=== PATIENT | male | born 1975 | race Caucasian/White ===

== ENCOUNTER 2025-07-18 15:53 | Observation (INO) | payer OTHER, SELFPAY ==
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
[2025-07-18 15:58] VITALS: BP 157/103; PULSE 69; TEMP 36.8; O2SAT 98; BMI 39.0
--- NOTE | 2025-07-18 16:13 | US_ITS ---
The [address] [address] Patient Name: HAZEL PAPPAS MRN: [id number] date: 1975 Sex: M Assigned Patient Location: ED.MAIN Current Patient Location: ED.MAIN Accession/Order Number: [id number] Exam Date: 07/18/2025 17:05 Report Date: 07/18/2025 18:17 At the request of: DENIZ SELF MD Procedure: US scrotum doppler Scrotal ultrasound HISTORY: Bilateral testicular pain for 2 months COMPARISON: None RIGHT testicle measures 5.0 x 1.9 x 3.6 cm. LEFT testicle measures 4.4 x 2.2 x 3.3 cm. No testicular mass or microcalcifications identified. Normal color flow of both testicles identified. RIGHT epididymal head measures 1.0 cm. LEFT epididymal head measures 0.9 cm. Prominent left varicocele.. No hydroceles identified. No scrotal wall abnormality identified. US/US scrotum doppler IMPRESSION: Left varicocele. Unremarkable testicles and epididymides. Impression dictated by: Rashawn Acosta M.D. 07/18/2025 6:17 PM Dictation Location: [place] [address] Electronically authenticated by: [id number] Y Date: 07/18/2025 18:17
[2025-07-18 16:22] LABS: Glucose Urine UA NEGATIVE (NEGATIVE)
[2025-07-18 16:31] LABS: Cast Seen? NONE SEEN #/LPF (NONE SEEN); Crystals Seen? None Seen #/HPF (None Seen); Urine Culture Indicated NO
[2025-07-18] MEDS: KETOROLAC TROMETHAMINE 60 MG/2 ML VIAL IM (16:41)
--- OUTSIDE RECORDS SUMMARY | 2025-07-18 16:42 | XMS_ITS | Clinical Summary ---
Author Organization [facility] Address [address] [place] [address] Care Team Providers Care Business Information Manager Name Role Phone Unavailable Primary Care Provider Unavailabl e Allergies No known active allergies Medications MedicationSigDispense QuantityRefillsLast FilledStart DateEnd DateStatus Losartan 50 MG tablet Take 1 tablet by mouth daily. 30 tablet 4Active Additional Information Patient not taking.Reported on 07/16/2025 Sulfamethoxazole-trimethoprim 800-160 MG per tablet Indications:Urinary tract infection without hematuria, site unspecifiedTake 1 tablet by mouth 2 times daily for 7 days. 14 tablet 515Active Active Problems No known active problems Encounters DateTypeDepartmentCare QdsuVfiehjyxbas66/05/2025Results Follow-Up [facility] [place] [address] [facility] [address] [place] [address] Tamara Metz, HYPERION ANALYST-FORMS ANALYST CHLAMYDIA & GONORRHEA AMPLIFIED PROBE, TRICHOMONAS BY PCR, URINE CULTURE 07/16/2025 3:00 PM ESTOffice Visit [facility] [place] [address] [facility] [address] [place] [address] Starr Rahman, HYPERION ANALYST-FORMS ANALYST Dysuria (Primary Dx); Unprotected sex; Urinary tract infection without hematuria, site unspecifiedfrom Last 3 Months Family History RelationNameStatusCommentsFatherAliveMotherDeceased Social History Tobacco UseTypesPacks/DayYears UsedDateSmoking Tobacco: NeverPassive [...] EDTGender IdentityNot on fileSexual OrientationNot on file Last Filed Vital Signs Vital SignReadingTime TakenCommentsBlood Ztlimjrk420/8407/16/2025 3:18 PM EST Apnoo411907/16/2025 3:18 PM FFXJwigefzltwf45.9 ??C (98.5 ??F)07/16/2025 3:18 PM ESTRespiratory Yqvc678609/15/2024 3:18 PM ESTOxygen Cumdmeynrc03%07/16/2025 3:18 PM ESTInhaled Oxygen Concentration--Vwgmbb466.5 kg (272 lb 3.2 oz)07/16/2025 3:18 PM TYJObgnwe550.8 cm (5' 10 )07/16/2025 3:18 PM ESTBody Mass Index39.06 07/16/2025 3:18 PM EST Plan of Treatment Health MaintenanceDue DateLast DoneCommentsHEPATITIS C VIRUS PYCKZRECM1977 RMMCXNX08 1975HIV SCREENING QPYCWUJNCO75/21/1992HEP B VACCINE (1 of 3 - 19+ 3-dose series)1996TDAP (ADULT)1996LIPID EFXBEHDJC32/21/2017 COLORECTAL CANCER SCREENING GPSPOTYFLM04/21/2022COVID-19 VACCINE (2024- season)2025INFLUENZA VACCINE (#1)2025PNEUMOCOCCAL VACCINE SERIESAged OutNo longer eligible based on patient's age to complete this topic Procedures Procedure NamePriorityDate/TimeAssociated DiagnosisCommentsHC SO TRICHOMONAS VAGINALIS AMPLIF - HZmyugyx64/04/2025 6:02 PM EST Dysuria Unprotected sex CHLAMYDIA & GONORRHEA AMPLIFIED HCMNDVyriawr60/04/2025 6:02 PM EST Dysuria Unprotected sex URINE MNMIDXIGyssnlx13/04/2025 6:02 PM EST Dysuria POCT URINE DIPSTICK GGOUVLPVZIlxyqpg76/04/2025 4:22 PM EST Dysuria from Last 3 Months Results * CHLAMYDIA & GONORRHEA AMPLIFIED PROBE (07/16/2025 6:02 PM EST)ComponentValue Ref RangeTest MethodAnalysis TimePerformed AtPathologist SignatureChlamydia trachomatis Amplified ProbeNot DetectedNot Nljrtpeu74/04/2025 9:06 PM [facility] LABORATORYComment:Chlamydia trachomatis DNA not detected by real-time PCR.Neisseria gonorrhea Amplified ProbeNot DetectedNot Izwdegfb49/04/2025 9:06 PM [facility]ATORYComment: Neisseria gonorrhoeae DNA not detected by real-time PCR.Specimen (Source) Anatomical Location / LateralityCollection Method / VolumeCollection Time Received TimeUrineURINE SPECIMEN / Rawusxr2307/16/2025 6:02 PM EST07/16/2025 7:24 PM EST Narrative Authorizing ProviderResult TypeResult StatusJessjuana Rahman HYPERION ANALYST-CNPMICROBIOLOGY - GENERAL ORDERABLESFinal ResultPerforming OrganizationAddressCity/State/[facility] CodePhone Number [facility] [address] [place] [phone] * TRICHOMONAS BY PCR (07/16/2025 6:02 PM EST)ComponentValueRef RangeTest Method Analysis TimePerformed AtPathologist SignatureTrichomonas vaginalis by PCRNot DetectedNot Muaiakrn98/04/2025 8:42 PM [facility] LABORATORYSpecimen (Source)Anatomical Location / LateralityCollection Method / VolumeCollection TimeReceived AlenLredx89/04/2025 6:02 PM EST07/16/2025 7:25 PM EST Narrative Authorizing ProviderResult TypeResult StatusJessjuana Rahman HYPERION ANALYST-CNPBODY FLUIDS & STOOLS ORDERABLESFinal ResultPerforming OrganizationAddressCity/State/ZIP Code Phone Number [facility] [address] [place] [phone] * URINE CULTURE (07/16/2025 6:02 PM EST)ComponentValueRef RangeTest Method Analysis TimePerformed AtPathologist SignatureCultureNo significant growth. Routine cultures are evaluated for significant uro-pathogens >=10,000 CFU/mL 07/17/2025 3:29 PM [facility] LABORATORYSpecimen (Source)Anatomical Location / LateralityCollection Method / VolumeCollection TimeReceived TimeUrineURINE SPECIMEN OBTAINED BY CLEAN CATCH PROCEDURE / Sdpwbrk4307/16/2025 6:02 PM EST07/16/2025 7:25 PM EST Narrative Authorizing ProviderResult TypeResult StatusStarr Rahman HYPERION ANALYST-CNPMICROBIOLOGY - GENERAL ORDERABLESFinal ResultPerforming OrganizationAddressCity/State/ZIP CodePhone Number [facility] [address] [place], [place] [phone] * POCT URINE DIPSTICK AUTOMATED (07/16/2025 4:22 [...] 4:22 PM EST Narrative Authorizing ProviderResult TypeResult StatusStarr Rhaman HYPERION ANALYST-CNPPOINT OF CARE TESTINGFinal Result from Last 3 Months Insurance
--- OUTSIDE RECORDS SUMMARY | 2025-07-18 16:42 | XMS_ITS | Encounter Summary ---
Author Organization [facility] Address [address] [place] [address] [place] [address] Care Team Providers Care Playback Operator Name Role Phone Unavailable Primary Care Provider Unavailabl e Encounter Details DateTypeDepartmentCare Team (Latest Contact Info)Iiudtkhvbba03/05/2025Results Follow-Up [facility] [address] [place] [address] Tamara Metz, TEXTILE COLORIST FORMULATOR-GERMINATION TESTING MANAGER [address] [facility] [address] [place] [address] CHLAMYDIA & GONORRHEA AMPLIFIED PROBE, TRICHOMONAS BY PCR, URINE CULTURE Social History Tobacco UseTypesPacks/DayYears UsedDateSmoking Tobacco: NeverPassive Smoke Exposure: NeverSmokeless Tobacco: NeverAlcohol UseStandard Drinks/WeekComments Yes0 (1 standard drink = 0.6 oz pure alcohol)rarelyDepressionAnswerDate Recorded PHQ-9 Total Score (Interpretation of Total Score 1-4 = Minimal depression; 5-9 = Mild depression; 10-14 = Moderate depression; 15-19 = Moderately severe depression)Sex and Gender InformationValueDate RecordedSex Assigned at BirthNot on fileLegal FhoRmad8605/21/2024 2:55 PM EDTGender IdentityNot on file Sexual OrientationNot on filedocumented as of this encounter Plan of Treatment Not on file documented as of this encounter Visit Diagnoses Not on filedocumented in this encounter Additional Health Concerns AssessmentNoted TimePHQ-9 Depression Total Score: 3:18 PM EST documented as of this encounter
[2025-07-18 17:43] LABS: Hematocrit 38.7 % (42.0-54.0); Hemoglobin 13.0 g/dL (14.0-18.0); Immature Granulocytes Abs Auto 0.02 10^3/uL (0.00-0.03); Immature Granulocytes Pct Auto 0.2 % (0.0-0.5); Lymphocytes Absolute Auto 2.8 10^3/uL (1.2-3.8); Mean Corpuscular HGB Conc 33.6 g/dL (29.9-35.2); Mean Corpuscular Hemoglobin 26.5 pg (25.9-34.0); Mean Corpuscular Volume 78.8 fL (80.0-94.0); Platelet Count 262 10^3/uL (150-450); Red Blood Count 4.91 10^6/uL (4.70-6.10); White Blood Count 9.4 10^3/uL (4.0-11.0)
[2025-07-18 18:01] LABS: Alanine Aminotransferase 30 U/L (16-63); Albumin Globulin Ratio 1.0; Albumin Level 3.4 g/dL (3.4-5.0); Alkaline Phosphatase 59 U/L (46-116); Anion Gap 10.6; Aspartate Amino Transferase 18 U/L (15-37); Blood Urea Nitrogen 10.0 mg/dL (7.0-18.0); Calcium 8.8 mg/dL (8.5-10.1); Carbon Dioxide 29.0 mmol/L (21.0-32.0); Chloride 107 mmol/L (98-107); Estimated GFR (African America >60 (>=60 mL/min/1.73m^2); Estimated GFR (Non-African Ame >60 (>=60 mL/min/1.73m^2); Globulin 3.5 g/dL; Glucose 76 mg/dL (74-106); Potassium 3.6 mmol/L (3.5-5.1); Sodium 143 mmol/L (136-145); Total Protein 6.9 g/dL (6.4-8.2)
--- NOTE | 2025-07-18 18:28 | CT_ITS ---
[address] [address] Patient Name: HAZEL PAPPAS MRN: [id number] date: 1975 Sex: M Assigned Patient Location: ER Current Patient Location: ED.MAIN Accession/Order Number: [id number] Exam Date: 07/18/2025 18:40 Report Date: 07/18/2025 19:59 At the request of: DENIZ SELF MD Procedure: CT abdomen pelvis wo con CT Abdomen and Pelvis withoutcontrast TECHNIQUE: Axial imaging with 2-D reconstruction. The CT exam was performed using one or more the following dose reduction techniques: Automated exposure control, adjustment of the MA and/or Kv according to patient size, or use of the iterative reconstruction technique. COMPARISON: None History: Left flank pain. Difficulty with urination LIMITATIONS: None LOWER THORAX Unremarkable LIVER: Hepatic steatosis GALLBLADDER: No gallbladder abnormality identified. BILE DUCTS: No dilatation SPLEEN: Unremarkable PANCREAS: Unremarkable ADRENAL GLANDS: Unremarkable KIDNEYS:Bilateral nephrolithiasis measuring up to 3 mm. 1 cm left UPJ stone with moderate hydronephrosis. Obstructing distal right ureteral stone measuring up to 11 mm. Moderate right hydronephrosis and hydroureter. 4 mm left UVJ calculus. AORTA: No abdominal aortic aneurysm identified. RETROPERITONEUM: No significant retroperitoneal abnormalities identified. MESENTERY:Unremarkable STOMACH:Unremarkable SMALL BOWEL: The small bowel loops are nondistended. APPENDIX: The appendix is normal. COLON: Scattered diverticulosis URINARY BLADDER: Urinary bladder is unremarkable. REPRODUCTIVE SYSTEM: Reproductive structures are unremarkable. PNEUMOPERITONEUM: None PERITONEAL FLUID:None BONY STRUCTURES: Unremarkable ABDOMINAL WALL: Fat-containing umbilical hernia. CT/CT abdomen pelvis wo con IMPRESSION: 1 cm left UPJ stone with moderate hydronephrosis. 11 mm distal right ureteral obstructing stone with moderate hydronephrosis and hydroureter. 4 mm left UVJ calculus. Impression dictated by: Rashawn Acosta M.D. 07/18/2025 7:59 PM Dictation Location[facility] Electronically authenticated by: [id number] Y Date: 07/18/2025 19:59
[2025-07-18 18:35] VITALS: BP 137/83; PULSE 60; O2SAT 100
--- NOTE | 2025-07-18 18:54 | ED.ABDPAIN1 ---
HPI - Abdominal Pain General Chief Complaint: Abdominal Pain Stated Complaint: PAIN ON THE LEFT SIDE/ PRESSURE TO PEE BUT CAN'T P Time Seen by Provider: 07/18/25 16:12 Source: patient Mode of arrival: walk-in History of Present Illness HPI narrative: 49-year-old male presented to the ER with a chronic pain that been going on for the last 2 months although over the last few days he has been having this new pain in his left flank pain Generally he said that the pain mostly in his scrotum but he does not have it all the time and it comes and goes The pain right now is in his left flank going to the front associated with no nausea no vomiting but he said that the pain sometimes is severe Related Data Home Medications ?Medication ?Instructions ?Recorded ?Confirmed No Known Home Medications 07/18/25 07/18/25 Allergies Allergy/AdvReac Type Severity Reaction Status Date / Time No Known Drug Allergies Allergy Verified 07/18/25 16:02 Review of Systems ROS Status of ROS 10 or more systems reviewed and unremarkable except as noted in history and below PFSH PFSH Social History Little interest or pleasure in doing things: not at all Feeling down, depressed, or hopeless: not at all Exam Narrative Exam Narrative: Nurses notes and vital signs reviewed and patient is not hypoxic. General: Well-appearing and in no apparent distress. Skin: Warm, dry, no pallor noted. No rash. Head: Normocephalic, atraumatic. Neck: Supple, non-tender. Eye: Pupils are equal, round and EOMI. No scleral icterus. Ears, Nose, Mouth, and Throat: TM are clear, no nasal mucosal hypertrophy. Oral mucosa is moist, no posterior oropharynx erythema, uvula is mid-line Cardiovascular: Regular Rate and Rhythm without murmur, gallop or rub. Respiratory: No accessory muscle use or respiratory distress. Lungs are clear to auscultation, no wheezing, rales or rhonchi Chest Wall: no tenderness Back: No midline thoracic or lumbar vertebral tenderness. Left CVA tenderness Musculoskeletal: normal ROM, no calf or popliteal tenderness, no lower extremity edema/swelling GI: Abdomen is soft, non-distended. Normal bowel sounds. No masses appreciated. No tenderness to palpation. No rebound, guarding, or rigidity noted. Scrotal exam was done with the caring nurse at the bedside showed no acute pathology the patient have normal testicles bilaterally but he is complaining of tenderness. Neurological: A&O x4. No cranial nerve dysfunction observed. No truncal ataxia. Moves all extremities. Sensation intact. Psychiatric: Cooperative and interactive. Normal mood and affect. Constitutional Vital Signs, click to edit/add: Last Vital Signs Temp 98.3 F 07/18/25 15:58 Pulse 60 07/18/25 18:35 Resp 16 07/18/25 18:35 BP 137/83 07/18/25 18:35 Pulse Ox 100 07/18/25 18:35 O2 Del Method Room Air 07/18/25 18:35 Course Vital Signs Vital signs: Vital Signs Temperature 98.3 F 07/18/25 15:58 Pulse Rate 69 07/18/25 15:58 Respiratory Rate 16 07/18/25 15:58 Blood Pressure 157/103 H 07/18/25 15:58 Pulse Oximetry 98 07/18/25 15:58 Oxygen Delivery Method Room Air 07/18/25 15:58 Temperature 98.3 F 07/18/25 15:58 Pulse Rate 60 07/18/25 18:35 Respiratory Rate 16 07/18/25 18:35 Blood Pressure 137/83 07/18/25 18:35 Pulse Oximetry 100 07/18/25 18:35 Oxygen Delivery Method Room Air 07/18/25 18:35 MDM - Abdominal Pain MDM Narrative Medical decision making narrative: Ultrasound of the scrotum showed no acute pathology in the urine as well as CBC and chemistry CT abdomen pelvis pending to rule out any kidney stone Lab Data Labs: Lab Results 07/18/25 07/18/25 Range/Units 16:00 17:32 WBC 9.4 (4.0-11.0) 10^3/uL RBC 4.91 (4.70-6.10) 10^6/uL Hgb 13.0 L (14.0-18.0) g/dL Hct 38.7 L (42.0-54.0) % MCV 78.8 L (80.0-94.0) fL MCH 26.5 (25.9-34.0) pg MCHC 33.6 (29.9-35.2) g/dL RDW 14.2 (11.0-15.0) % Plt Count 262 (150-450) 10^3/uL MPV 9.2 L (9.5-13.5) fL Neut % (Auto) 54.7 (43.0-75.0) % Lymph % (Auto) 29.3 (20.5-60.0) % [place] % (Auto) 10.7 (1.7-12.0) % Eos % (Auto) 4.4 (0.9-7.0) % Baso % (Auto) 0.7 (0.2-2.0) % Neut # (Auto) 5.1 (1.4-6.5) 10^3/uL Lymph # (Auto) 2.8 (1.2-3.8) 10^3/uL [place] # (Auto) 1.0 H (0.3-0.8) 10^3/uL Eos # (Auto) 0.4 (0.0-0.7) 10^3/uL Baso # (Auto) 0.1 (0.0-0.1) 10^3/uL Abs Immat Gran (auto) 0.02 (0.00-0.03) 10^3/uL Imm/Tot Granulo (auto) 0.2 (0.0-0.5) % Sodium 143 (136-145) mmol/L Potassium 3.6 (3.5-5.1) mmol/L Chloride 107 (98-107) mmol/L Carbon Dioxide 29.0 (21.0-32.0) mmol/L Anion Gap 10.6 BUN 10.0 (7.0-18.0) mg/dL Creatinine 0.99 (0.70-1.30) mg/dL Est GFR ( Amer) >60 (>=60 mL/min/1.73m^2) Est GFR (Non-Af Amer) >60 (>=60 mL/min/1.73m^2) BUN/Creatinine Ratio 10.1 Glucose 76 (74-106) mg/dL Calcium 8.8 (8.5-10.1) mg/dL Total Bilirubin 0.5 (0.2-1.0) mg/dL AST 18 (15-37) U/L ALT 30 (16-63) U/L Alkaline Phosphatase 59 (46-116) U/L Total Protein 6.9 (6.4-8.2) g/dL Albumin 3.4 (3.4-5.0) g/dL Globulin 3.5 g/dL Albumin/Globulin Ratio 1.0 Urine Color Lt. yellow (YELLOW) Urine Clarity Clear (CLEAR) Urine pH 6.0 (5.0-9.0) Ur Specific [place] <=1.005 A (1.005-1.025) Urine Protein Negative (NEG/TRACE) mg/dL Urine Glucose (UA) Negative (NEGATIVE) mg/dL Urine Ketones Negative (NEGATIVE) mg/dL Urine Occult Blood Negative (NEGATIVE) Urine Nitrite Negative (NEGATIVE) Urine Bilirubin Negative (NEGATIVE) Urine Urobilinogen 0.2 (0.2-1.0) EU/dL Ur Leukocyte Esterase Trace A (NEGATIVE) Urine RBC None seen (0-2) #/HPF Urine WBC 2-5 A (NONE SEEN) #/HPF Ur Squamous Epith Cells Rare (NONE/RARE) #/LPF Urine Crystals None seen (None Seen) #/HPF Urine Bacteria Trace A (NONE SEEN) #/HPF Urine Casts None seen (NONE SEEN) #/LPF Urine Mucus None seen (NONE SEEN) Ur Culture Indicated? No Discharge Plan Discharge Patient Disposition: Still a Patient
[2025-07-18 20:26] VITALS: BP 142/88; PULSE 62; TEMP 36.6; O2SAT 99
--- NOTE | 2025-07-18 20:33 | ED.GENADUL1 ---
HPI HPI - General Adult General Chief complaint: Abdominal Pain Stated complaint: PAIN ON THE LEFT SIDE/ PRESSURE TO PEE BUT CAN'T P Time Seen by Provider: 07/18/25 16:12 Source: patient Mode of arrival: walk-in History of Present Illness HPI narrative: This 49-year-old male was signed out to me at shift change. He presents for evaluation of lower abdominal pain radiating into his testicles. He states earlier today the pain became so severe that his eyes were watering. He does not have a history of kidney stones. He is not diabetic. He has not had a fever. I reviewed his labs. He has a normal white count and stable hemoglobin. Electrolytes are normal with a stable BUN and creatinine. Urine shows 2-5 white blood cells but is otherwise clear. Ultrasound of the testicles was negative and CT scan of the abdomen pelvis shows a 1 cm left UPJ stone with moderate hydronephrosis and an 11 mm distal right ureteral stone with moderate hydronephrosis and hydroureter as well as a 4 mm left UVJ calculus. The results of these findings were discussed with Dr. Brand from urology. He requested the patient be admitted to the hospitalist service be kept n.p.o. after midnight with IV fluids and pain medications and he will be seen and evaluated by urology tomorrow. This was discussed with the patient who is in agreement with this plan. His pain is under control at this time. He is not having any nausea or vomiting. His abdomen is soft and nontender. Related Data Home Medications ?Medication ?Instructions ?Recorded ?Confirmed No Known Home Medications 07/18/25 07/18/25 Allergies Allergy/AdvReac Type Severity Reaction Status Date / Time No Known Drug Allergies Allergy Verified 07/18/25 16:02 Opioid HPI Opioid Management Most Recent Opioid Data: Last Pain Scale 3 Today, 20:26 Last ED Pain Assessment Today, 20:26 Last MAR Pain Assessment Today, 16:41 PFSH PFSH Social History Little interest or pleasure in doing things: not at all Feeling down, depressed, or hopeless: not at all Exam Constitutional Vital Signs, click to edit/add: Last Vital Signs Temp 97.9 F 07/18/25 20:26 Pulse 62 07/18/25 20:26 Resp 16 07/18/25 18:35 BP 142/88 H 07/18/25 20:26 Pulse Ox 99 07/18/25 20:26 O2 Del Method Room Air 07/18/25 20:26 Course Vital Signs Vital signs: Vital Signs Temperature 98.3 F 07/18/25 15:58 Pulse Rate 69 07/18/25 15:58 Respiratory Rate 16 07/18/25 15:58 Blood Pressure 157/103 H 07/18/25 15:58 Pulse Oximetry 98 07/18/25 15:58 Oxygen Delivery Method Room Air 07/18/25 15:58 Temperature 97.9 F 07/18/25 20:26 Pulse Rate 62 07/18/25 20:26 Respiratory Rate 16 07/18/25 18:35 Blood Pressure 142/88 H 07/18/25 20:26 Pulse Oximetry 99 07/18/25 20:26 Oxygen Delivery Method Room Air 07/18/25 20:26 Medical Decision Making Lab Data Labs: Lab Results 07/18/25 07/18/25 Range/Units 16:00 17:32 WBC 9.4 (4.0-11.0) 10^3/uL RBC 4.91 (4.70-6.10) 10^6/uL Hgb 13.0 L (14.0-18.0) g/dL Hct 38.7 L (42.0-54.0) % MCV 78.8 L (80.0-94.0) fL MCH 26.5 (25.9-34.0) pg MCHC 33.6 (29.9-35.2) g/dL RDW 14.2 (11.0-15.0) % Plt Count 262 (150-450) 10^3/uL MPV 9.2 L (9.5-13.5) fL Neut % (Auto) 54.7 (43.0-75.0) % Lymph % (Auto) 29.3 (20.5-60.0) % [place] % (Auto) 10.7 (1.7-12.0) % Eos % (Auto) 4.4 (0.9-7.0) % Baso % (Auto) 0.7 (0.2-2.0) % Neut # (Auto) 5.1 (1.4-6.5) 10^3/uL Lymph # (Auto) 2.8 (1.2-3.8) 10^3/uL [place] # (Auto) 1.0 H (0.3-0.8) 10^3/uL Eos # (Auto) 0.4 (0.0-0.7) 10^3/uL Baso # (Auto) 0.1 (0.0-0.1) 10^3/uL Abs Immat Gran (auto) 0.02 (0.00-0.03) 10^3/uL Imm/Tot Granulo (auto) 0.2 (0.0-0.5) % Sodium 143 (136-145) mmol/L Potassium 3.6 (3.5-5.1) mmol/L Chloride 107 (98-107) mmol/L Carbon Dioxide 29.0 (21.0-32.0) mmol/L Anion Gap 10.6 BUN 10.0 (7.0-18.0) mg/dL Creatinine 0.99 (0.70-1.30) mg/dL Est GFR ( Amer) >60 (>=60 mL/min/1.73m^2) Est GFR (Non-Af Amer) >60 (>=60 mL/min/1.73m^2) BUN/Creatinine Ratio 10.1 Glucose 76 (74-106) mg/dL Calcium 8.8 (8.5-10.1) mg/dL Total Bilirubin 0.5 (0.2-1.0) mg/dL AST 18 (15-37) U/L ALT 30 (16-63) U/L Alkaline Phosphatase 59 (46-116) U/L Total Protein 6.9 (6.4-8.2) g/dL Albumin 3.4 (3.4-5.0) g/dL Globulin 3.5 g/dL Albumin/Globulin Ratio 1.0 Urine Color Lt. yellow (YELLOW) Urine Clarity Clear (CLEAR) Urine pH 6.0 (5.0-9.0) Ur Specific [place] <=1.005 A (1.005-1.025) Urine Protein Negative (NEG/TRACE) mg/dL Urine Glucose (UA) Negative (NEGATIVE) mg/dL Urine Ketones Negative (NEGATIVE) mg/dL Urine Occult Blood Negative (NEGATIVE) Urine Nitrite Negative (NEGATIVE) Urine Bilirubin Negative (NEGATIVE) Urine Urobilinogen 0.2 (0.2-1.0) EU/dL Ur Leukocyte Esterase Trace A (NEGATIVE) Urine RBC None seen (0-2) #/HPF Urine WBC 2-5 A (NONE SEEN) #/HPF Ur Squamous Epith Cells Rare (NONE/RARE) #/LPF Urine Crystals None seen (None Seen) #/HPF Urine Bacteria Trace A (NONE SEEN) #/HPF Urine Casts None seen (NONE SEEN) #/LPF Urine Mucus None seen (NONE SEEN) Ur Culture Indicated? No Discharge Plan Discharge Patient Disposition: Still a Patient
--- NOTE | 2025-07-18 21:27 | ECG_ITS ---
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 Measurements Intervals [place] Rate: 57 P: 5 NM: 209 QRS: 58 QRSD: 113 T: 29 QT: 423 QTc: 415 Interpretive Statements SINUS BRADYCARDIA MODERATE INTRAVENTRICULAR CONDUCTION DELAY [110+ ms QRS DURATION] Borderline ECG No previous ECG available for comparison Electronically Signed On 07-19-2025 7:28:42 EST by KWABENA MCCORMACK M.D.
[2025-07-18] MEDS: OXYCODONE HCL/ACETAMINOPHEN 5MG/325MG 1 TAB PO (22:03)
[2025-07-18] MEDS: ONDANSETRON 4 MG RAPDIS TABLET SL (22:03)
[2025-07-18 23:06] VITALS: BP 145/80; PULSE 66; TEMP 35.7; O2SAT 97; BMI 39.0
[2025-07-19] VITALS (14 sets, daily range): BP systolic 107–152; BP diastolic 69–92; PULSE 72–97; TEMP 36.3–37.2; O2SAT 84–98
[2025-07-19] MEDS: DEXTROSE 5%-0.9% NACL 1,000 ML 1,000 ML 100 ML IV (00:54)
[2025-07-19] MEDS: OXYCODONE HCL 5 MG TABLET PO ×2 (04:51→18:23)
[2025-07-19] MEDS: CALCIUM CARBONATE 500 MG (200MG ELEMENTAL) TAB CHEW PO (06:25)
[2025-07-19] MEDS: HYDROMORPHONE HCL 1 MG/ML CARTRIDGE 0.5 MG IVP (08:00)
[2025-07-19 08:10] LABS: Hematocrit 38.1 % (42.0-54.0); Hemoglobin 12.7 g/dL (14.0-18.0); Immature Granulocytes Abs Auto 0.03 10^3/uL (0.00-0.03); Immature Granulocytes Pct Auto 0.4 % (0.0-0.5); Lymphocytes Absolute Auto 1.1 10^3/uL (1.2-3.8); Mean Corpuscular HGB Conc 33.3 g/dL (29.9-35.2); Mean Corpuscular Hemoglobin 26.8 pg (25.9-34.0); Mean Corpuscular Volume 80.4 fL (80.0-94.0); Platelet Count 226 10^3/uL (150-450); Red Blood Count 4.74 10^6/uL (4.70-6.10); White Blood Count 8.5 10^3/uL (4.0-11.0)
[2025-07-19 08:23] LABS: Anion Gap 10.8; Blood Urea Nitrogen 12.0 mg/dL (7.0-18.0); Calcium 8.7 mg/dL (8.5-10.1); Carbon Dioxide 29.4 mmol/L (21.0-32.0); Chloride 107 mmol/L (98-107); Estimated GFR (African America >60 (>=60 mL/min/1.73m^2); Estimated GFR (Non-African Ame >60 (>=60 mL/min/1.73m^2); Glucose 140 mg/dL (74-106); Potassium 4.2 mmol/L (3.5-5.1); Sodium 143 mmol/L (136-145)
--- NOTE | 2025-07-19 08:30 | CM.NOTE ---
Rounds made with Dr. Ferguson, pt will go to OR today for bilat kidney stones. Discussed plan of care with pt, pt verbalizes understanding.
--- NOTE | 2025-07-19 09:19 | PM.HP ---
HPI H&P: HPI History of Present Illness Chief complaint: PAIN ON THE LEFT SIDE/ PRESSURE TO PEE BUT CAN'T P Narrative: Mr. Waller is a 49-year-old gentleman who came to the emergency room with a few days history of progressive left flank pain radiating toward the testicle. CAT scan showed bilateral obstructing stone. 1 cm in the left UPJ and 11 mm is on the right side with bilateral hydronephrosis Emergency room physician communicated finding with urologist Dr. Brand who recommended observation admission, n.p.o. after midnight for cystoscopy and stent this morning. Patient continues to have pain. No gross hematuria. No fever or chills Sonogram of the scrotum is unremarkable No prior history of stones. Opioid HPI Opioid Management Most Recent Pain and Opioid Data: Last Pain Scale 9 Today, 09:14 Last Pain Assessment Today, 08:00 Last ED Pain Assessment 07/18/25, 20:26 Last MAR Pain Assessment Today, 09:14 Last ORT Total Score 11 07/18/25, 23:06 Last ORT Risk Category High Risk 07/18/25, 23:06 Review of Systems ROS Status of ROS 10 or more systems reviewed and unremarkable except as noted in history and below PFSH PFS Medical History (Updated 07/19/25 @ 09:22 by Marsha Ferguson MD) Skull fracture ?S02.91XA - Unspecified fracture of skull, initial encounter for closed fracture (ICD-10) Wrist fracture, right ?S62.101A - Fracture of unspecified carpal bone, right wrist, initial encounter for closed fracture (ICD-10) Anxiety ?F41.9 - Anxiety disorder, unspecified (ICD-10) Depression ?F32.A - Depression, unspecified (ICD-10) Fatty liver disease, nonalcoholic ?K76.0 - Fatty (change of) liver, not elsewhere classified (ICD-10) Gout ?M10.9 - Gout, unspecified (ICD-10) Surgical History (Updated 07/18/25 @ 23:49 by Yann Pacheco) H/O hernia repair ?Z98.890 - Other specified postprocedural states (ICD-10) ?Z87.19 - Personal history of other diseases of the digestive system (ICD-10) H/O wrist surgery ?Z98.890 - Other specified postprocedural states (ICD-10) Family History (Updated 07/18/25 @ 23:46 by Yann Pacheco) Mother Mental health disorder Family history of diabetes mellitus Grandmother Mental health disorder Family history of diabetes mellitus Father Mental health disorder Family history of myocardial infarction Family history of heart disease Social History (Updated 07/18/25 @ 23:54 by Yann Pacheco) Within the past year, how often did you have a drink containing alcohol: monthly or less Within the past year, how often did you have six or more drinks on one occasion: never Smoking status: Never smoker Second hand tobacco smoke exposure: No Non-prescribed substance use: denies use Non-prescribed substance use details: Notes past marijuana use, occasionally. Denies addiction/abuse. Known occupational exposures/hazards: No Highest level of school completed/degree received: some college, no degree Do you want help with school or training: No In a typical week, how many times do you talk on the telephone with family, friends, or neighbors: 3 or more times per week How often do you get together with friends or relatives: 3 or more times per week Little interest or pleasure in doing things: not at all Feeling down, depressed, or hopeless: not at all Feel stressed/tense/nervous/anxious/difficulty sleeping: to some extent Gender Identity: male Meds Home Medications and Allergies Home Medications ?Medication ?Instructions ?Recorded ?Confirmed ?Type No Known Home Medications 07/18/25 07/18/25 History Allergies Allergy/AdvReac Type Severity Reaction Status Date / Time No Known Drug Allergies Allergy Verified 07/18/25 16:02 Exam Narrative Exam Narrative: [pt is awake and alert. oriented to place, time and person HEENT: [place] conjunctiva and NL buccal mucosa Neck: Supple, no tenderness Endocrine: No Thyromegaly. Vascular: No JVD or carotid bruit. Lymphatic: No cervical lymphadenopathy. Chest: CTA no DTP. Heart RRR, no extra sound or murmur. Abd: Soft, no tenderness, no rebound and no rigidity. Mild to moderate left mid and upper abdomen discomfort Neuro: A A O. Nl speech, comprehension and attention. Nl and symetrical motor and tone examination through out. []] Constitutional Vital Signs, click to edit/add: Last Vital Signs Temp 98.2 F 07/19/25 08:00 Pulse 72 07/19/25 08:00 Resp 18 07/19/25 08:00 BP 148/91 H 07/19/25 08:00 Pulse Ox 95 07/19/25 08:00 O2 Del Method Room Air 07/19/25 08:00 Results Labs Labs: Short CBC 07/18/25 07/19/25 Range/Units 17:32 08:04 WBC 9.4 8.5 (4.0-11.0) 10^3/uL Hgb 13.0 L 12.7 L (14.0-18.0) g/dL Hct 38.7 L 38.1 L (42.0-54.0) % Plt Count 262 226 (150-450) 10^3/uL BMP 07/18/25 07/19/25 17:32 08:04 Sodium 143 143 Potassium 3.6 4.2 Chloride 107 107 Carbon Dioxide 29.0 29.4 BUN 10.0 12.0 Creatinine 0.99 1.27 Glucose 76 140 H Calcium 8.8 8.7 Liver Function 07/18/25 Range/Units 17:32 Total Bilirubin 0.5 (0.2-1.0) mg/dL AST 18 (15-37) U/L ALT 30 (16-63) U/L Alkaline Phosphatase 59 (46-116) U/L Albumin 3.4 (3.4-5.0) g/dL Urine 07/18/25 Range/Units 16:00 Urine Color Lt. yellow (YELLOW) Urine Clarity Clear (CLEAR) Urine pH 6.0 (5.0-9.0) Ur Specific [place] <=1.005 A (1.005-1.025) Urine Protein Negative (NEG/TRACE) mg/dL Urine Glucose (UA) Negative (NEGATIVE) mg/dL Assessment and Plan Assessment and Plan (1) Hydronephrosis with obstructing calculus: Plan Bilateral obstructing stones with hydronephrosis I had accepted to admit the patient to the medical floor under observation to Pain management, IV fluid infusion and intravenous ceftriaxone I also started patient on Flomax and oxybutynin. EKG does not show ST depression or elevation. Urologist Dr. Brand is planning cystoscopy and stent insertion. Defer further needed diagnostic and therapeutic invention related to his obstructing stones to urology team. Continue to monitor electrolytes. DVT prophylaxis Avoid pharmacologic intervention due to his planned surgery this morning SCD
[2025-07-19] MEDS: KETOROLAC TROMETHAMINE 30 MG/ML VIAL 15 MG IM (09:31)
--- NOTE | 2025-07-19 13:51 | P.URCN_ITS ---
Urology - CN: HPI Date of Consult Consult date: 07/19/25 Requesting Physician: Marsha Ferguson MD Primary Care Provider: Non-Staff Physician, MD Consult Narrative Reason for consult IM: Obstructing ureteral stones. Hydronephrosis. Flank pain. Narrative: Thanks for consultation on this 49 yo white male with no prior kidney stone history. Presents with one day history of left-sided flank pain. He presented to the ER and had a CT scan demonstrating the presence of bilateral hydronephrosis. He has a left UPJ calculus measuring about a centimeter and about a 1.1cm right distal ureteral calculus. Urologic consultation was requested. The entire PMH,PSH,ROS, family and social history, medications, and allergies are reviewed and unchanged from the admission H and P documented by Dr. Luis earlier today. cc:: CC: Marsha Ferguson MD [facility] Medical History (Updated 07/19/25 @ 14:05 by Marco Brand MD) Skull fracture ?S02.91XA - Unspecified fracture of skull, initial encounter for closed fracture (ICD-10) Wrist fracture, right ?S62.101A - Fracture of unspecified carpal bone, right wrist, initial encounter for closed fracture (ICD-10) Anxiety ?F41.9 - Anxiety disorder, unspecified (ICD-10) Depression ?F32.A - Depression, unspecified (ICD-10) Fatty liver disease, nonalcoholic ?K76.0 - Fatty (change of) liver, not elsewhere classified (ICD-10) Gout ?M10.9 - Gout, unspecified (ICD-10) Surgical History (Updated 07/18/25 @ 23:49 by Yann Pacheco) H/O hernia repair ?Z98.890 - Other specified postprocedural states (ICD-10) ?Z87.19 - Personal history of other diseases of the digestive system (ICD-10) H/O wrist surgery ?Z98.890 - Other specified postprocedural states (ICD-10) Family History (Updated 07/18/25 @ 23:46 by Yann Pacheco) Mother Mental health disorder Family history of diabetes mellitus Grandmother Mental health disorder Family history of diabetes mellitus Father Mental health disorder Family history of myocardial infarction Family history of heart disease Social History (Updated 07/18/25 @ 23:54 by Yann Pacheco) Within the past year, how often did you have a drink containing alcohol: monthly or less Within the past year, how often did you have six or more drinks on one occasion: never Smoking status: Never smoker Second hand tobacco smoke exposure: No Non-prescribed substance use: denies use Non-prescribed substance use details: Notes past marijuana use, occasionally. Denies addiction/abuse. Known occupational exposures/hazards: No Highest level of school completed/degree received: some college, no degree Do you want help with school or training: No In a typical week, how many times do you talk on the telephone with family, friends, or neighbors: 3 or more times per week How often do you get together with friends or relatives: 3 or more times per week Little interest or pleasure in doing things: not at all Feeling down, depressed, or hopeless: not at all Feel stressed/tense/nervous/anxious/difficulty sleeping: to some extent Gender Identity: male Meds Home Medications and Allergies Home Medications ?Medication ?Instructions ?Recorded ?Confirmed ?Type No Known Home Medications 07/18/2503/06 History Allergies Allergy/AdvReac Type Severity Reaction Status Date / Time No Known Drug Allergies Allergy Verified 07/18/25 16:02 Exam Narrative Exam Narrative: General: The patient appears nontoxic. Does not appear ill. Skin: Warm, dry. No gross lesions are identified. HEENT: Normocephalic, atraumatic. Pupils equal, round, and reactive to light and accommodation. Oral mucosa moist. Respiratory: No increased respiratory effort. Cardiac: Regular rate and rhythm GI: Abdomen is soft, nontender, negative peritoneal signs, no obvious hepatosplenomegaly. Moderately obese : The bladder is nonpalpable. There is no CVA tenderness bilaterally. Genitalia: phallus normal, testes normal without tenderness or mass, scrotum normal Musculoskeletal: Moves all extremities, normal strength Neurologic: Awake, alert, oriented Psychiatric: Affect normal to clinical condition No obvious adenopathy Constitutional Vital Signs, click to edit/add: Last Vital Signs Temp 98.3 F 07/19/25 12:00 Pulse 75 07/19/25 12:00 Resp 18 07/19/25 12:00 BP 107/69 07/19/25 12:00 Pulse Ox 95 07/19/25 12:00 O2 Del Method Room Air 07/19/25 12:00 Results Labs Labs: Short CBC 07/18/25 07/19/25 Range/Units 17:32 08:04 WBC 9.4 8.5 (4.0-11.0) 10^3/uL Hgb 13.0 L 12.7 L (14.0-18.0) g/dL Hct 38.7 L 38.1 L (42.0-54.0) % Plt Count 262 226 (150-450) 10^3/uL BMP 07/18/25 07/19/25 17:32 08:04 Sodium 143 143 Potassium 3.6 4.2 Chloride 107 107 Carbon Dioxide 29.0 29.4 BUN 10.0 12.0 Creatinine 0.99 1.27 Glucose 76 140 H Calcium 8.8 8.7 Liver Function 07/18/25 Range/Units 17:32 Total Bilirubin 0.5 (0.2-1.0) mg/dL AST 18 (15-37) U/L ALT 30 (16-63) U/L Alkaline Phosphatase 59 (46-116) U/L Albumin 3.4 (3.4-5.0) g/dL Urine 07/18/25 Range/Units 16:00 Urine Color Lt. yellow (YELLOW) Urine Clarity Clear (CLEAR) Urine pH 6.0 (5.0-9.0) Ur Specific [place] <=1.005 A (1.005-1.025) Urine Protein Negative (NEG/TRACE) mg/dL Urine Glucose (UA) Negative (NEGATIVE) mg/dL Additional Findings Additional findings: Reviewed CT scan. Reviewed labs, viewed urinalysis. Urology Assessment and Plan Assessment and Plan (1) Hydronephrosis with obstructing calculus: (2) Morbid obesity: (3) Abdominal pain: Plan Discussed with the patient. Discussed options. He has bilateral obstructing ureteral calculi. Recommendation would be cystoscopy, right ureteroscopy, laser ablation and basket extraction of right ureteral calculus with the possibility of stenting. It appears he has a large left UPJ calculus. Most likely stenting will be the option secondary to its high location. He understands that this may require lithotripsy and further intervention. He understands risk of bleeding, infection, stent pain and irritation. Left unchecked, the patient could begin developing renal failure as he does have bilateral ureteral obstructions. My review of the CT scan also demonstrates small renal calculi which will have to be monitored in the future. In addition I would recommend a metabolic workup at some point consisting of a 24-hour urine and blood work to see if there are any preventative measures for him. He agrees with that plan. He does carry an increased anesthesia risk secondary to his moderate obesity. He agrees to proceed. Thanks for consultation.
--- NOTE | 2025-07-19 14:07 | P.URON_ITS ---
Urology Surgery Operative Note Operative Note Procedure Date: 07/19/25 Time Out Performed: yes Pre-op Diagnosis: Hydronephrosis with bilateral ureteral calculi Morbid obesity Left flank pain. Renal calculi Procedures performed: Cystoscopy Right ureteroscopy with laser ablation and basket extraction right distal ureteral calculus Right double-J variable length ureteral stent. Left ureteroscopy Holmium laser ablation and basket extraction left distal ureteral calculus Left double-J stent placement under fluoroscopic guidance Anesthesia: General-ET Primary Surgeon: Marco Brand Complications: none Estimated blood loss (mL): 1 Specimens: ureteral calculi fragments, bilateral Indications for Procedures: This is a 49-year-old white male with no prior history of kidney stones who presents with bilateral obstructing ureteral calculi by CT scan. He has a left UPJ calculus measuring about 1 cm and a right distal ureteral calculus measuring about 11 mm. Recommendation made for operative intervention with cystoscopy, right ureteroscopy with laser ablation and basket extraction right distal ureteral stone. Possibility of right stent was discussed. He has a left UPJ calculus and most likely the treatment will be a left double-J stent with the eventual ESWL of that stone. He understands all this and wishes to proceed. He understands that a stent most likely will be placed on the left side as well. He understands risk benefits and details of the procedure as outlined to him including risk of bleeding, infection, stent pain and irritation, need for additional procedural intervention, heart and lung problems under anesthesia, among others. He already had received intravenous antibiotics consisting of ceftriaxone earlier today. Full informed consent is part of the hospital record. Detailed description of Procedure: The patient was brought back to the operating room and a timeout was performed. All in agreement with the operative plan and he is identified appropriately. After the successful induction of general anesthesia by Dr. Juan he is placed in a modified dorsolithotomy position and prepped in usual fashion Betadine solution. He is draped appropriately and 2% Xylocaine jelly is placed per urethra. A well-lubricated 22 Vietnamese cystourethroscope with 30 degree lens is then passed into the bladder without difficulty. Anterior urethra is within normal limits. He has moderate lateral lobe hypertrophy and a high riding bladder neck. Once into the bladder panendoscopy reveals moderate trabeculation. There are no tumors stones or diverticuli. The bilateral ureteral orifices are normal. Under fluoroscopic imaging it was unclear as to the location of the right distal ureteral stone. The left UPJ calculus was easily seen. I passed a 0.035 guidewire up the right ureteral orifice and decided to proceed with semirigid ureteroscopy. The cystoscope was removed and the ureteroscope was negotiated up alongside the stent up into the ureter. Several centimeters proximally overlying the mid aspect of the sacral ureter the stone was encountered. Holmium laser ablation at 10 W of power utilizing a 200 ?m fiber was accomplished. This fractured the stone into multiple pieces, each of which was tediously basketed free and sent to pathology for evaluation. Ureteroscopy was carried up to the mid ureter and I felt that a stent was indicated secondary to the irritation at the site of impaction. With the safety wire left in place the ureteroscope was removed and a cystoscope was backloaded over the wire and a 4.9 Vietnamese 22 to 32 cm variable length stent was passed into the right kidney under fluoroscopic guidance. Wire removed and there is good curl within the kidney and the urinary bladder. Attention was turned towards the left side. I passed a 0.0335 guidewire up the left side. Left retrograde pyelogram was performed via the ureteroscope. This revealed that the presumed calculus was actually a phlebolith. Contrast was passed up to the level of the left ureteropelvic junction and the stone was present at that level. I decided to proceed with ureteroscopy on the left as well. A stone was encountered and I felt it was too large to simply engage. The holmium laser ablation was completed on the left as described on the contralateral side. Basket extraction of remaining fragments was accomplished. Ureteroscopy was carried up to the mid ureter and no other stones identified. The left UPJ calculus was still located quite high in the ureter. I felt at this point a stent should be placed. Stent was subsequently placed as described on the contralateral side. Stone still resides at the left ureteropelvic junction. Both stents are in good position. All stone fragments have been collected and sent to pathology for evaluation. The bladder was emptied scope removed and the procedure was terminated. He tolerates well. He is transferred back to PACU in satisfactory condition, stable vital signs. Plan to be for transfer to the floor for management by primary service. From my standpoint he can be discharged at any time, perhaps on some anticholinergics. He can contact my office to make arrangements for ESWL of the left UPJ calculus and perhaps removal of the right ureteral stent under the same anesthesia.
--- NOTE | 2025-07-19 14:15 | PC.NURSE ---
1412: pt has no complaints of pain at this time,pts only complaint is the urge to urinate.
[2025-07-19] MEDS: HYOSCYAMINE SULFATE 0.125 MG TAB.SUBL SL (17:23)
[2025-07-19] MEDS: TAMSULOSIN HCL 0.4 MG CAPSULE PO (21:24)
[2025-07-20] VITALS: PULSE 68; TEMP 36.7; O2SAT 94
[2025-07-20] MEDS: HYDROMORPHONE HCL 1 MG/ML CARTRIDGE 0.5 MG IVP ×2 (01:46→08:31)
[2025-07-20 06:51] LABS: Anion Gap 11.9; Blood Urea Nitrogen 12.0 mg/dL (7.0-18.0); Calcium 9.0 mg/dL (8.5-10.1); Carbon Dioxide 27.3 mmol/L (21.0-32.0); Chloride 105 mmol/L (98-107); Estimated GFR (African America >60 (>=60 mL/min/1.73m^2); Estimated GFR (Non-African Ame >60 (>=60 mL/min/1.73m^2); Glucose 151 mg/dL (74-106); Potassium 4.2 mmol/L (3.5-5.1); Sodium 140 mmol/L (136-145)
--- NOTE | 2025-07-20 08:29 | P.DS_ITS ---
DS: Providers Provider Date of admission: 07/18/25 22:52 Primary care physician: Non-Staff Physician, Consults: 07/18/25 21:27 Consult to Urology Routine Consulting Provider: Marco Brand Reason for consultation: Ureter stones with hydro. DS: Diagnosis Discharge Diagnosis (1) Hydronephrosis with obstructing calculus: (2) Morbid obesity: (3) Abdominal pain: Plan As listed above, below and others that are not listed DS: Summary Hospital Course Hospital Course: Mr. Waller is a 49-year-old gentleman who came in with left flank pain and was found to have the following: Bilateral obstructing stones with hydronephrosis I had accepted to admit the patient to the medical floor under observation to Pain management, IV fluid infusion and intravenous ceftriaxone I also started patient on Flomax and oxybutynin. EKG does not show ST depression or elevation. Urologist Dr. Brand performed cystoscopy, laser breakdown, stone extractions and bilateral double-J stent on 07/19/2025. Patient is cleared by urologist to be discharged home and follow-up in the outpatient setting. Patient is feeling better today. Improvement of his pain and discomfort. Patient will be discharged home on a combination of medication as listed on the discharge documents. Time Spent with Patient Time attestation: Total time spent providing and/or coordinating discharge services: Exam Narrative Exam Narrative: [pt is awake and alert. oriented to place, time and person. No distress HEENT: [place] conjunctiva and NL buccal mucosa Neck: Supple, no tenderness Endocrine: No Thyromegaly. Vascular: No JVD or carotid bruit. Lymphatic: No cervical lymphadenopathy. Chest: CTA no DTP. Heart RRR, no extra sound or murmur. Abd: Soft, no tenderness, no rebound and no rigidity. Resolution of the left flank, left mid abdomen discomfort. Neuro: A A O. Nl speech, comprehension and attention. Nl and symetrical motor and tone examination through out. []] Constitutional Vital Signs, click to edit/add: Last Vital Signs Temp 98.1 F 07/20/25 00:00 Pulse 68 07/20/25 00:00 Resp 20 07/20/25 00:00 BP 124/70 07/19/25 20:00 Pulse Ox 94 L 07/20/25 00:00 O2 Del Method Nasal Cannula 07/19/25 20:00 O2 Flow Rate 3 07/19/25 20:00 DS: Data Data Completed and Pending Labs on day of discharge: Labs from last 24 hours 07/20/25 06:25 Sodium 140 Potassium 4.2 Chloride 105 Carbon Dioxide 27.3 Anion Gap 11.9 BUN 12.0 Creatinine 1.16 Est GFR ( Amer) >60 Est GFR (Non-Af Amer) >60 BUN/Creatinine Ratio 10.3 Glucose 151 H Calcium 9.0 Discharge Plan Discharge Disposition: Home, Self-Care Discharge Medications: New acetaminophen [Tylenol] 325 mg Tablet 650 mg PO Q6H PRN (Reason: Pain or fever) Qty: 45 0RF hyoscyamine sulfate 0.125 mg Tablet, Sublingual 0.125 mg sublingual TID PRN (Reason: Cramping and/or spasm) Qty: 30 0RF oxycodone 5 mg Tablet 5 mg PO Q4H PRN (Reason: Pain) Qty: 30 0RF tamsulosin 0.4 mg Capsule 0.4 mg PO DAILY Qty: 25 0RF cefuroxime axetil 500 mg tablet 500 mg PO BID Qty: 12 0RF Print Language: Iraqi Forms: Portal Instructions Referrals: Marco Brand MD [Physician, Urology] Referral Note: Please call my office and discuss with Eda, who is my information systems project manager. As you know by now, we were able to remove the right lower ureteral stone and you do have a stent on the right side. On the left side the stent was placed. You also had a left lower ureteral stone which required laser and removal as well. The remaining stone up near the kidney will require ESWL, which stands for extracorporeal shockwave lithotripsy. Essentially this is a stone busting procedure. Discussed this with Eda at my office and she can get you on the schedule for this.
[2025-07-20 08:35] VITALS: BP 123/69; PULSE 63; TEMP 36.6; O2SAT 98
[2025-07-20 08:39] VITALS: PULSE 68; O2SAT 97
[2025-07-20] MEDS: TAMSULOSIN HCL 0.4 MG CAPSULE PO (08:44)
[2025-07-20 09:54] VITALS: PULSE 89; O2SAT 98
--- NOTE | 2025-07-22 08:49 | PC.NURSE ---
Dr. Brand's office will contact the patient to schedule a follow up appt. and to schedule the ESWL.
--- NOTE | 2025-07-22 14:16 | CM.DCFOLLOWU ---
Person spoke with:patient How are you feeling? at work right now as he was discharged with no restrictions, trying to pass stone now How is your pain? mid Did you understand your discharge instructions? yes Do you have any questions about your discharge instructions?no Were you given any prescriptions at discharge?yes Were you able to get your prescriptions filled?yes Do you understand how to take your medications as ordered?yes Do you have any questions about your follow up appointment and do you plan to keep your follow up appointment? no questions, Dr. Brand's office did call and schedule follow up Is there anything else that you would like to discuss? no Questions/Comments/Concerns/Other:none
== END 2025-07-20 10:44 | disposition home or self-care (01) ==
LOC: ER 22:24 → MS 22:57
PROVIDERS: Emergency Medicine; Urology; Admitting Provider Internal Medicine; Emergency Provider Emergency Medicine; Visit Provider Internal Medicine
PROC: (CPT 918; principal; 2025-07-19 13:00)
DX: N13.2 Hydronephrosis with renal and ureteral calculous obstruction (principal); E66.01 Morbid (severe) obesity due to excess calories; R10.9 Unspecified abdominal pain; N32.89 Other specified disorders of bladder; Z68.38 Body mass index [BMI] 38.0-38.9, adult; R39.198 Other difficulties with micturition; G47.33 Obstructive sleep apnea (adult) (pediatric); K21.9 Gastro-esophageal reflux disease without esophagitis; K76.0 Fatty (change of) liver, not elsewhere classified; F41.9 Anxiety disorder, unspecified; F32.A Depression, unspecified
CPT/HCPCS: 52356; 36415; 51798; 74176; 76000; 76870; 80048; 80053; 81001; 82365; 85025; 93005; 93976; 96365; 96366; 96372; 96375; 96376; 99285; 99999; G0378; J0330; J0696; J1100; J1171; J1885; J2371; J2405; J2704; J3010; Q0162